=== PATIENT | female | born 1985 | race Caucasian/White ===

== ENCOUNTER 2024-05-20 18:12 | Emergency (ER) | payer OTHER, SELFPAY ==
[2024-05-20 18:38] VITALS: BP 123/90; PULSE 76; RESP 16; TEMP 36.9; O2SAT 100; BMI 30.7
[2024-05-20 19:28] VITALS: BP 158/92; PULSE 90; O2SAT 99
--- NOTE | 2024-05-20 19:45 | W.ED.URI ---
HPI - URI/Sore Throat General: Chief Complaint: Upper Respiratory Infection Stated Complaint: L. ear ache Time Seen by Provider: 05/20/24 18:51 Source: patient Mode of arrival: ambulatory Limitations: no limitations History of Present Illness: Patient is a 37-year-old female presenting to the emergency department with sudden onset left ear pain occurring around 1400 today. She notes over the past few days she has had a viral illness including sore throat, fevers, and neck pain/lymphadenopathy. The symptoms were starting to subside until sudden onset of left ear pain, which she states has been radiating down her left neck. She denies any recent swimming or pressure changes. No history of recurrent ear infections or history of tympanostomy tubes. No recent concerts or other source of noise trauma. She denies any drainage or bleeding from the ear. No posterior ear pain or pain with manipulation of the pinna. No fevers or other symptoms to note at this time. MD elicited complaint: other (Left ear pain) Onset (ago): hour(s) Consistency: constant and progressively worsening Severity: severe Relieving factors: nothing Context: other (Recent viral infection) Associated symptoms: Reports ear or mastoid pain and nasal congestion; Deny abdominal pain, chills, chest pain, diarrhea, fever(s), headache(s), nausea or vomiting Treatments prior to arrival: acetaminophen and ibuprofen Related Data Previous Rx's Medication Instructions Recorded amoxicillin 500 mg tablet 1,000 mg (2 x 500 mg) PO BID 10 05/20/24 days #40 tabs fluticasone propionate 50 2 spray intranasal DAILY PRN nasal 05/20/24 mcg/actuation nasal congestion #16 grams spray,suspension Allergies Allergy/AdvReac Type Severity Reaction Status Date / Time No Known Allergies Allergy Verified 05/20/24 18:37 Review of Systems General: Reports: 10 or more systems reviewed and unremarkable except in HPI and below Const: Denies: fever(s), chills or fatigue Eyes: Denies: change in vision ENMT: Reports: ear or mastoid pain and nasal congestion; Denies: throat pain, ear discharge or nasal discharge Card: Denies: chest pain, palpitations, swelling of feet/ankles or lightheadedness Resp: Denies: dyspnea, productive cough or wheezing GI: Denies: abdominal pain, nausea, vomiting, diarrhea or constipation : Denies: flank pain, difficulty voiding, dysuria or urinary frequency Musc: Reports: neck pain; Denies: back pain or joint pain Skin/Breast: Denies: rash Neuro: Denies: headache(s), numbness in extremities or weakness in extremities Physical Exam Const: COMMON NORMALS: no acute distress, average body habitus, patient oriented x3, no limitations, healthy appearing, alert and well nourished HENMT: COMMON NORMALS: normocephalic, atraumatic, hearing grossly normal bilaterally, external ears normal, Normal external nose present, Normal nasal mucous membranes and turbinates present, moist oral mucous membranes and oropharynx normal HEAD & SCALP: normocephalic and atraumatic NOSE: Normal external nose present and Normal nasal mucous membranes and turbinates present EXTERNAL EAR: Yes external ears normal TYMPANIC MEMBRANE: TM normal on the right and TM abnormal TM laterality: left Details: bulging, erythematous and loss of landmarks OTHER: No mastoid bone tenderness to palpation or erythema associated Eye: COMMON NORMALS: Equal, round and reactive pupils present, EOMs intact bilaterally and conjunctivae normal CONJUNCTIVA: Yes conjunctivae normal PUPIL: Yes Equal, round and reactive pupils present Neck/C-Spine: OTHER: Bilateral anterior cervical lymphadenopathy, reproducible tenderness to palpation of the left SCM Resp: COMMON NORMALS: normal respiratory effort, No retractions and No use of accessory muscles Extremity: COMMON NORMALS: normal to inspection and full ROM Neuro: COMMON NORMALS: patient oriented x3, moves all extremities, no focal motor deficits and no sensory deficits noted SENSORIUM/ORIENTATION: Yes alert Course Vital Signs: Vital signs: Vital Signs Temperature 98.4 F 05/20/24 18:38 Pulse Rate 90 05/20/24 19:28 Respiratory Rate 16 05/20/24 18:38 Blood Pressure 158/92 05/20/24 19:28 Pulse Oximetry 99 05/20/24 19:28 MDM - URI/Sore Throat Medical Decision Making Patient presenting with sudden onset left ear pain, signs of a pretty significant otitis media with otoscopy. No perforation was noted, and we will try outpatient antibiotic therapy at this time. This could pose as a superimposed infection from recent viral illness, though etiology ultimately unknown as she did not have any pertinent history in terms of barotrauma or noise trauma. Will also give a shot of Decadron here for swelling and symptom relief, encouraged her to start taking Flonase for her reported nasal congestion and clogged ears. Her vitals were stable on triage and prior to discharge. All other questions and concerns addressed she will be discharged home at this time. No radiology studies performed this visit Discharge Plan Discharge Patient Disposition: Home Clinical Impression: Otitis media Condition: Stable Prescriptions: New amoxicillin 500 mg tablet 1,000 mg PO BID 10 Days Qty: 40 0RF fluticasone propionate 50 mcg/actuation spray,suspension 2 spray intranasal DAILY PRN (Reason: nasal congestion) Qty: 16 0RF Rx Instructions: administer into each nostril Discharge Orders: Discharge ED (Routine); Ordered 05/20/24 Ordered By: Redd Kuhn Patient Instructions: Ear Infection (ED) Activity Restrictions/Additional Instructions: See attached patient instructions for further education. Take amoxicillin as prescribed. Take Flonase for symptom relief. Drink plenty of fluids. Alternate Tylenol and ibuprofen for pain relief. If you start to see relief of symptoms, please continue taking prescription. Follow-up with primary care for reevaluation. If you have worsening fever, onset of significant nausea and vomiting, or other signs of severe illness please return to the emergency department. Coding Level of Care Code ED Supercalender Operator for Marky Mclaughlin
[2024-05-20] MEDS: amoxicillin 500 mg Capsule 1000 MG PO (19:57)
[2024-05-20] MEDS: dexamethasone 10 mg/mL INJ IM (19:58)
[2024-05-20 20:03] VITALS: BP 124/86; PULSE 83; O2SAT 100
== END 2024-05-20 20:13 | disposition home or self-care (01) ==
PROVIDERS: Emergency Provider Physician Assistant
DX: H66.92 Otitis media, unspecified, left ear (principal)
CPT/HCPCS: 96372; 99284; J1100

== ENCOUNTER 2024-05-22 18:00 | Emergency (ER) | payer OTHER, SELFPAY ==
[2024-05-22 18:12] VITALS: BP 127/76; PULSE 89; TEMP 36.7; O2SAT 100; BMI 30.7
--- NOTE | 2024-05-22 19:55 | W.ED.EAR ---
HPI - Ear Problem General: Chief complaint: Ear Stated complaint: Left Ear Pain Time Seen by Provider: 05/22/24 19:24 Source: patient and family Mode of arrival: ambulatory Limitations: no limitations History of Present Illness: Patient is a 38-year-old female presents to ED today with a complaint of left ear pain. Patient was seen here in the emergency department a few days ago and diagnosed with a left otitis media. She was placed on amoxicillin. She has also been taking fluticasone intranasally. Patient was given a steroid shot at that visit. She initially thought she was improving but pain worsened again today. She is just now approximately 48 hours into antibiotic therapy. She has not had any drainage from the ear. No tinnitus or hearing loss. She is also having a little bit of stuffy nose and sinus pain. No fevers. MD Complaint: ear pain Location: left ear Duration: constant Severity: severe Exacerbating factors: nothing Discharge from ear: no Associated symptoms: Reports ear or mastoid pain; Denies fever(s), headache(s), neck pain or tinnitus Treatment prior to arrival: none Related Data Previous Rx's Medication Instructions Recorded amoxicillin 500 mg tablet 1,000 mg (2 x 500 mg) PO BID 10 05/20/24 days #40 tabs fluticasone propionate 50 2 spray intranasal DAILY PRN nasal 05/20/24 mcg/actuation nasal congestion #16 grams spray,suspension Allergies Allergy/AdvReac Type Severity Reaction Status Date / Time No Known Allergies Allergy Verified 05/22/24 18:16 Review of Systems Const: Denies: fever(s), chills, body aches, fatigue or malaise ENMT: Reports: ear or mastoid pain, nasal congestion and sinus pain; Denies: ear discharge, tinnitus or disequilibrium GI: Denies: nausea or vomiting Musc: Denies: neck pain Neuro: Denies: headache(s) Physical Exam Const: COMMON NORMALS: no acute distress, average body habitus, patient oriented x3, no limitations, healthy appearing, alert and well nourished GENERAL APPEARANCE: cooperative HENMT: COMMON NORMALS: normocephalic, atraumatic, external ears normal, EAC's normal and Normal external nose present HEAD & SCALP: normal to inspection, normocephalic and atraumatic FACE & SINUS: normal facial exam, face symmetric and sinus tenderness (mild) maxillary NOSE: Normal external nose present EXTERNAL EAR: Yes external ears normal, Yes mastoids normal and Yes no periauricular adenopathy EXTERNAL AUDITORY CANAL: EAC's normal TYMPANIC MEMBRANE: TM normal on the right and TM abnormal TM laterality: left (significant bulging, erythema, and fluid behind TM) Details: bulging, effusion, erythematous, fluid behind TM and loss of landmarks MOUTH: Normal oral and palatal mucosa present and lip normal TEETH & GINGIVA: Yes fair dentition THROAT: posterior oropharynx normal and tonsils normal Neck/C-Spine: COMMON NORMALS: full ROM and no lymphadenopathy GENERAL: Yes normal visual inspection, No anterior neck swelling and No submandibular swelling Neuro: COMMON NORMALS: patient oriented x3 and CN's II-XII intact bilaterally SENSORIUM/ORIENTATION: Yes alert Course Vital Signs: Vital signs: Vital Signs Temperature 98.1 F 05/22/24 18:12 Pulse Rate 90 05/22/24 20:32 Blood Pressure 130/70 05/22/24 20:32 Pulse Oximetry 100 05/22/24 20:32 Oxygen Delivery Me thod Room Air 05/22/24 18:12 MDM - Ear Medical Decision Making Patient with a severe left-sided otitis media. She is just now 48 hours into a 10-day course of amoxicillin. Recommend she continue this. She can continue her fluticasone. Offered small amount of pain medication but patient declines. She is cleared from an emergency standpoint. Patient will be traveling home tomorrow. Recommend follow-up with primary care if symptoms do not seem to be improving over the next 48 hours. Medical Records I reviewed the patient's medical records. No radiology studies performed this visit Discharge Plan Discharge Patient Disposition: Home Clinical Impression: Otitis media Qualifiers: Otitis media type: suppurative Chronicity: acute Laterality: left Recurrence: non-recurrent Spontaneous tympanic membrane rupture: without spontaneous rupture Qualified Code(s): H66.002 - Acute suppurative otitis media without spontaneous rupture of ear drum, left ear Condition: Stable Prescriptions: No Action amoxicillin 500 mg tablet 1,000 mg PO BID 10 Days Qty: 40 0RF fluticasone propionate 50 mcg/actuation spray,suspension 2 spray intranasal DAILY PRN (Reason: nasal congestion) Qty: 16 0RF Rx Instructions: administer into each nostril Discharge Orders: Discharge ED (Routine); Ordered 05/22/24 Ordered By: Lia Lee Patient Instructions: Otitis Media - Adult, Ear Infection (ED) Coding Level of Care Code ED Registered Nurse Post Partum for Marky Mclaughlin
[2024-05-22 20:16] VITALS: PULSE 85; O2SAT 100
[2024-05-22 20:32] VITALS: BP 130/70; PULSE 90; O2SAT 100
== END 2024-05-22 20:33 | disposition home or self-care (01) ==
PROVIDERS: Emergency Provider Physician Assistant
DX: H66.002 Acute suppurative otitis media without spontaneous rupture of ear drum, left ear (principal)
CPT/HCPCS: 99282